=== PATIENT | male | born 2000 | race Caucasian/White ===

== ENCOUNTER 2021-05-22 17:04 | Emergency (ER) | payer OTHER ==
[~2021-05-22] VITALS: Ht 170 cm; Wt 65.0 kg
--- NOTE | 2021-05-22 17:47 | ED Upper Extremity ---
General Chief Complaint: Upper Extremity Stated Complaint: COLLAR BONE INJ Nursing Triage Note: PT CO OF RUNNING INTO POLE AND HURTING R COLLAR BONE. RATES PAIN 12/25 Source: patient Exam Limitations: no limitations (BRANDO BILLS) History of Present Illness Date Seen by Provider: May 22, 2021 Time Seen by Provider: 17:45 Initial Comments Patient is a 20-year-old male who presents ED with right clavicle and shoulder pain. He states on Sunday around 11 PM he ran into a pole. Immediate pain with decreased range of motion of the right shoulder. Patient states since the injury he has had worsening pain with decreased range of motion. Patient is been taken ibuprofen with some improvement. Pain with any movement the right arm. Was having difficulty playing pool last night secondary to the pain. Denies chest pain, shortness of breath, neck pain, headache, dizziness. (BRANDO BILLS) Allergies and Home Medications Patient Home Medication List Home Medication List Reviewed: Yes (BRANDO BILLS) Naproxen (Naproxen) 500 Mg Tablet.dr, 500 MG PO BID PRN for PAIN-MODERATE (5-7) Prescribed by: KEVIN LIVE on 05/22/21 1830 Review of Systems Constitutional: No chills, No diaphoresis, No dizziness, No fever EENTM: No hearing loss, No ear pain Respiratory: No cough, No dyspnea on exertion, No short of breath, No wheezing Gastrointestinal: No abdominal pain, No diarrhea, No vomiting Genitourinary: No decreased output, No discharge Musculoskeletal: No back pain; joint pain, joint swelling Skin: No change in color, No change in hair/nails Psychiatric/Neurological: Denies Headache, Denies Numbness (BRANDO BILLS) All Other Systems Reviewed Negative Unless Noted: Yes (BRANDO BILLS) Physical Exam Vital Signs Vital Signs - First Documented 05/22/21 17:15 Temp 37.0 Pulse 78 Resp 18 B/P (MAP) 127/78 (94) Pulse Ox 95 (MADELINE SHEA MD) Vital Signs Capillary Refill : Less Than 3 Seconds (BRANDO BILLS) Height, Weight, BMI Height: '" Weight: lbs. oz. kg; 22.00 BMI Method: General Appearance: WD/WN, no apparent distress HEENT: PERRL/EOMI, normal ENT inspection, TMs normal, pharynx normal Neck: non-tender, full range of motion, supple Cardiovascular: regular rate, rhythm, no edema, no gallop, no JVD Respiratory: chest non-tender, lungs clear, normal breath sounds, no respiratory distress, no accessory muscle use Gastrointestinal: normal bowel sounds, non tender, soft, no organomegaly Back: normal inspection, no CVA tenderness, no vertebral tenderness Shoulder: bone tenderness, swelling Elbow/Forearm: normal inspection, non-tender, no evidence of injury, normal ROM Neurologic/Psychiatric: 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 Normal active range of motion. No chest pain, shortness of breath. Orthopedic outpatient follow-up. Range of motion exercises. Anti-inflammatories. Return precautions were discussed. (BRANDO BILLS) Impression Primary Impression: Clavicle pain Disposition: 01 HOME, SELF-CARE Condition: Improved Departure-Patient Inst. Decision time for Depature: 18:28 (BRANDO BILLS) Referrals: NO,LOCAL PHYSICIAN (PCP/Family) Primary Care Physician Patient Instructions: Contusion (DC) Scripts Naproxen (Naproxen) 500 Mg Tablet.dr 500 MG PO BID PRN for PAIN-MODERATE (5-7), #20 TAB Prov: BRANDO BILLS 05/22/21 Work/School Note: Family Work Note, Work Release Form Date Seen in the Emergency Department: May 22, 2021 Return to Work: May 24, 2021 Restrictions: No Restrictions ATTENDING PHYSICIAN NOTE: I was physically present as attending physician in the emergency department dur ing the care of this patient, but I was not directly involved in the decision making or delivery of care for this patient. (MADELINE SHEA MD) BRANDO BILLS May 22, 2021 17:47 MADELINE SHEA MD May 22, 2021 20:37
--- NOTE | 2021-05-22 18:15 | Diagnostic Imaging Report ---
CLINICAL HISTORY: Right clavicular pain. Injury. COMPARISON: None. TECHNIQUE: Two views of the right clavicle. FINDINGS: There is no acute fracture or dislocation of the right clavicle. Alignment is anatomic. IMPRESSION: No acute fracture or dislocation in the right clavicle. Dictated by: Dictated on workstation # [id number]
--- NOTE | 2021-05-22 18:15 | Diagnostic Imaging Report ---
CLINICAL HISTORY: Right shoulder pain. Injury. COMPARISON: None. TECHNIQUE: Three views of the right shoulder. FINDINGS: There is no acute fracture or dislocation of the right shoulder. Alignment is anatomic. The imaged joint spaces are preserved. The included right chest is clear. IMPRESSION: No acute fracture or dislocation in the right shoulder. Dictated by: Dictated on workstation # [id number]
[2021-05-22] MEDS ORDERED: NAPR500T8 PO (18:30)
[2021-05-22 19:05] VITALS: BP 127/78
== END 2021-05-22 18:35 | disposition home or self-care (01) ==
LOC: ER 17:09
DX: M25.511 Pain in right shoulder (principal)
CPT/HCPCS: 73000; 73030